=== PATIENT | male | born 1985 | race Caucasian/White ===

== ENCOUNTER 2020-03-25 00:34 | Emergency (ER) | payer BC ==
[~2020-03-25] VITALS: Ht 190.5 cm; Wt 144.7 kg
[2020-03-25] MEDS ORDERED: ONDANSETRON HCL 4 MG ORAL DISINTEGRATING TAB PO ONE (01:00)
[2020-03-25] MEDS ORDERED: IBUPROFEN 200 MG TAB PO ONE (01:00)
[2020-03-25] MEDS ORDERED: HYDROCODONE/APAP 5MG-325MG TAB PO ONE (01:00)
[2020-03-25] MEDS ORDERED: IBUPROFEN IB200 MG PO (01:08)
[2020-03-25] MEDS ORDERED: ULTRAM 50MG50 MG PO (01:08)
[2020-03-25] MEDS ORDERED: ONDANSETRON HCL 4 MG ORAL DISINTEGRATING TAB ONE (01:08)
--- NOTE | 2020-03-25 01:08 | Emergency Department Note ---
History of Present Illnes History of Present Illness Chief Complaint: Extremity Trauma/Pain History of Present Illness This is a 34 year old male hx of htn not taking med c/o left leg pain. He twisted his leg and heard popping, his left leg started hurting ever since. . Historian: Patient Arrival Mode: Car Hone Operator Required: No Radiation: Reports extremity Severity: moderate Duration (how long): hour(s) Progression: worsening Treatments prior to arrival: none Past Medical/Family History Physician Review I have reviewed the patient's past medical and family history. Any updates have been documented here. Past Medical History Recent Fever: No Clinical Suspicion of Infectio: No New/Unexplained Change in Ment: No Past Medical History: Hypertension Past Surgical History: None Social History Smoking Cessation: Never Smoker Any Illegal Drug Use: No Family History Family history of heart diseas: No Other Last Tetanus: UNK Review of Systems Review of Systems Constitutional: Reports no symptoms EENTM: Reports no symptoms Cardiovascular: Reports no symptoms Respiratory: Reports no symptoms Gastrointestinal: Reports no symptoms Genitourinary: Reports no symptoms Musculoskeletal: Reports as per HPI, Reports muscle pain Integumentary: Reports no symptoms Neurological: Reports no symptoms Psychological: Reports no symptoms Endocrine: Reports no symptoms Hematological/Lymphatic: Reports no symptoms Physical Exam Related Data Allergies: Coded Allergies: No Known Allergies (Unverified , 03/25/20) Triage Vital Signs Vital Signs Date Time Temp Pulse Resp B/P (MAP) Pulse Ox O2 Delivery O2 Flow Rate FiO2 03/25/20 00:55 97.4 97 18 172/99 97 Vital signs reviewed: Yes (htn) Physical Exam CONSTITUTIONAL Constitutional: Present well-developed, Present well-nourished HENT HENT: Present normocephalic, Present atraumatic, Present oropharynx clear/moist, Present nose normal HENT L/R: Present left ext ear normal, Present right ext ear normal EYES Eyes: Reports PERRL, Reports conjunctivae normal NECK Neck: Present ROM normal PULMONARY Pulmonary: Present effort normal, Present breath sounds normal CARDIOVASCULAR Cardiovascular: Present regular rhythm, Present heart sounds normal, Present capillary refill normal, Present normal rate GASTROINTESTINAL Abdominal: Present soft, Present nontender, Present bowel sounds normal GENITOURINARY Genitourinary: Present exam deferred SKIN Skin: Present warm, Present dry MUSCULOSKELETAL Musculoskeletal: Present ROM normal, Present tenderness, Present swelling, Present other (left leg muscle tender) NEUROLOGICAL Neurological: Present alert, Present oriented x 3, Present no gross motor or sensory deficits PSYCHOLOGICAL Psychological: Present mood/affect normal, Present judgement normal Assessment & Plan Medical Decision Making MDM gastrocnemius muscle tear. Assessment & Plan Final Impression: (1) Acute pain due to trauma (2) Gastrocnemius muscle tear Depart Disposition: HOME, SELF-CARE Last Vital Signs Date Time Temp Pulse Resp B/P (MAP) Pulse Ox O2 Delivery O2 Flow Rate FiO2 03/25/20 00:55 97.4 97 18 172/99 97 Home Meds Active Scripts Ibuprofen (IBUPROFEN IB) 200 Mg Tablet, 3 TAB PO Q6H for pain, #90 Prov:SYLVIA BUSTILLOS MD 03/25/20 Tramadol Hcl* (ULTRAM 50MG*) 50 Mg Tab, 50 MG PO Q6H PRN for severe pain, #30 TAB Prov:SYLVIA BUSTILLOS MD 03/25/20 Medications in the ED Acetaminophen/ Hydrocodone Bitart 1 ea ONCE ONCE PO ; Start 03/25/20 at 01:00; Stop 03/25/20 at 01:01; Status UNV Ibuprofen 600 mg NOW ONCE PO ; Start 03/25/20 at 01:00; Stop 03/25/20 at 01:01; Status UNV Ondansetron HCl 4 mg ONCE ONCE PO ; Start 03/25/20 at 01:00; Stop 03/25/20 at 01:01; Status UNV Physician Attestation Provider Attestation need to f/u orthopedic physician SYLVIA BUSTILLOS MD Mar 25, 2020 01:08
[2020-03-25] MEDS ORDERED: IBUPROFEN 600 MG TAB ONE (01:09)
[2020-03-25] MEDS ORDERED: HYDROCODONE/APAP 5MG-325MG TAB ONE (01:09)
== END 2020-03-25 01:30 | disposition home or self-care (01) ==
LOC: FSED 00:34
DX: M79.605 Pain in left leg (principal); S86.812A Strain of other muscle(s) and tendon(s) at lower leg level, left leg, initial encounter; X50.1XXA Overexertion from prolonged static or awkward postures, initial encounter; I10 Essential (primary) hypertension
CPT/HCPCS: 99283; Q0162